=== PATIENT | female | born 1945 | race Caucasian/White ===

== ENCOUNTER 2018-08-13 11:19 | Outpatient (CLI) | payer MEDICARE, BC ==
--- NOTE | 2018-08-13 13:22 | ULT ---
THYROID ULTRASOUND: Date: 08/13/18 CLINICAL HISTORY: Thyroid goiter. FINDINGS: Left thyroid lobe is absent. The right thyroid lobe measures 3.4 cm in length. There is mild thickeni ng of the isthmus at 4.0 mm. There is generalized heterogeneity of the thyroid parenchyma. A discrete nodule is not identified. IMPRESSION: 1. Evidence of thyroid goiter without a discrete nodule. 2. There is absence of the left thyroid lobe. POS: [facility]
== END 2018-08-13 11:20 | disposition home or self-care (01) ==
LOC: SCSULT 11:19
PROVIDERS: ATTEND Otolaryngology Plastic Surgery within the Head & Neck
DX: E04.1 Nontoxic single thyroid nodule (principal); R53.83 Other fatigue; E04.9 Nontoxic goiter, unspecified
CPT/HCPCS: 36415; 76536; 84443

== ENCOUNTER 2018-08-27 11:00 | Outpatient (CLI) | payer MEDICARE, BC ==
[2018-08-27 15:49] LABS: #Basophils 0.1 thou/uL (0.0-0.2); #Eosinphils 0.1 thou/uL (0.0-0.7); #Lymphocytes 1.5 thou/uL (1.20-3.40); #Monocytes 0.7 thou/uL (0.11-0.59); #Neutrophils 6.7 thou/uL (1.40-6.50); %Basophils 0.7 % (0.0-1.0); %Eosinophils 1.6 % (0.0-10.0); %Lymphocytes 16.4 % (21.0-51.0); %Monocytes 7.9 % (0.0-10.0); %Neutrophils 73.4 % (42.0-75.0); Hemoglobin 12.1 g/dL (12.0-16.0); Mean Corpuscular HGB CONC 32.3 g/dL (32.0-36.0); Mean Corpuscular Hemoglobin 28.1 pg (27.0-31.0); Mean Platelet Volume 7.4 fL (7.4-10.4); Platelet Count 357 thou/uL (130-400); RBC Distribution Width 12.7 % (11.5-14.5); Red Blood Cell (RBC) Count 4.32 mill/uL (4.20-5.40); White Blood Cell (WBC) Count 9.1 thou/uL (4.8-10.8)
[2018-08-27 15:55] LABS: PTT 31.9 SEC (22.9-36.1); Prothrombin Time 13.2 SEC (12.0-14.7)
[2018-08-27 16:04] LABS: Bilirubin Negative (Negative); Blood, Urine Negative (Negative); Clarity CLEAR (Clear); Glucose, Urine (Dipstick) Negative (Negative); Leukocyte Negative (Negative); Nitrite Negative (Negative); Protein, Urine (Dipstick) Negative (Neg-Trace); Urobilinogen 0.2 mg/dL (0.2-1.0)
[2018-08-27 16:07] LABS: Bacteria/HPF None Seen HPF (None Seen); Hyaline Casts/LPF 0-3 HYALINE CAST LPF (0-3 Hyaline); Pathc Cast-AUWi Flag 0.29 (0-2.49); RBC/HPF 0-3 HPF (0-3); Squamous Epithelial 0-3 HPF (0-3); WBC/HPF None Seen HPF (0-3)
[2018-08-27 16:14] LABS: Anion Gap 16 mmol/L (10-20); BUN (Urea Nitrogen) 12 mg/dL (9.8-20.1); Calc. Creatinine Clearance 0 mL/min (70-130); Calcium 9.6 mg/dL (7.8-10.44); Carbon Dioxide 29 mmol/L (23-31); Chloride 93 mmol/L (98-107); Estimated GFR-MDRD 54; Glucose 104 mg/dL (83-110); Potassium 3.1 mmol/L (3.5-5.1); Sodium 135 mmol/L (136-145)
--- NOTE | 2018-08-27 17:07 | RAD ---
CHEST 2 VIEWS: HISTORY: Preadmission radiograph. COMPARISON: None. FINDINGS: Normal cardiac silhouette. Pulmonary vessels and hilum are normal. Costophrenic angles are clear. No consolidation or mass. No pneumothorax or osseous abnormalities. Incidental hiatal hernia is not ed. IMPRESSION: No acute cardiopulmonary process. POS: [facility]
== END 2018-08-27 11:01 | disposition home or self-care (01) ==
LOC: LABBT 11:00
PROVIDERS: ATTEND Orthopaedic Surgery
DX: Z01.818 Encounter for other preprocedural examination (principal); M17.12 Unilateral primary osteoarthritis, left knee
CPT/HCPCS: 71046; 80048; 81001; 85025; 85610; 85730; 87081; 93005; 93010

== ENCOUNTER 2018-09-06 09:24 | Day surgery (SDC) | payer MEDICARE, BC ==
--- NOTE | 2018-09-04 15:57 | OP ---
DATE OF PROCEDURE: 09/04/2018 PROCEDURE PERFORMED: Left total knee arthroplasty using Bennett triathlon, 4 femur, 4 tibia, 9 mm CS X3 polyethylene, and a 29 patella. SHOE WORKER: Desean Robertson PA-C. BLOOD LOSS: Minimal. SPECIMEN: None. DRAINS: None. COMPLICATIONS: None. TOURNIQUET TIME: 50 minutes. PROCEDURE IN DETAIL: After informed consent was obtained in the preoperative holding area, the patient was taken to the operative suite where general anesthesia was induced. Once adequate level of general anesthesia was obtained, the patient was positioned and a well-padded tourniquet was placed around the left proximal thigh. The left lower extremity was then prepped and draped in the usual sterile fashion. Prior to exsanguination, a time-out was called and all members of the surgical team agreed upon site, surgeon, and patient. The extremity was then exsanguinated and the tourniquet was raised. A midline longitudinal incision was then made directly over the patella extending 2 fingerbreadths above the superior pole of the patella and 2 fingerbreadths inferior to the inferior patellar pole of the patella. Deeper subcutaneous layers were dissected sharply and local bleeding was controlled with Bovie electrocautery. A quad tendon longitudinal split was then made sharply and a median parapatellar arthrotomy was carried out both sharp and with Bovie electrocautery, carried down to 1 fingerbreadth medial to the tibial tubercle. The knee was then placed into flexion and the patella was everted nicely, and a copious fat pad ectomy was performed allowing for greater exposure of the tibia. The computer-assisted distal femoral fiducial was then placed and pinned firmly, and the distal femoral cutting guide was pinned firmly into place. The oscillating saw was then used to remove the appropriate amount of bone. The 4-in-1 cutting block was then placed on the distal femur and the oscillating saw was used to remove the appropriate amount of bone off the anterior, posterior, and chamfer cuts. After completion of bone cuts, the anterior cruciate ligament was resected sharply and the posterior cruciate ligament retractor was placed and the tibia was subluxed for better exposure. Partial meniscectomies were carried out, and the tibial computer-assisted fiducial was pinned, and the cutting guide was placed. Oscillating saw was then used to remove the bone, with Hohmann retractors used to take care and protect the collateral ligaments. After the tibial resection was performed, a laminar learning consultant was placed in between the freshened bone cuts. The knee placed at 90 degrees and further bilateral meniscectomies were carried out, and the curved osteotome and curettage were used to remove any excess bone spurs in the posterior compartment. The trial femoral component, tibial baseplate were placed with the appropriate polyethylene trial insert with an appropriate polyethylene spacer and patellar button. The knee was taken through full range of motion with flexion and extension from 0 to 90 degrees and patellar broach squarely in the trochlea without any squinting or subluxation noted. The knee was also stable to varus and valgus stressing at 0, 15, 45, and 90 degrees of flexion. The drawer was negative. All trial components were then removed and the keel punch was used to provide the appropriate defect in the tibia with a mallet. The freshened bone cuts were copiously irrigated with pulsatile lavage of about 1.5 L to remove all excess debris. The freshened bone cuts were then dried with suction and lap sponge. The knee was placed in flexion and retractors were placed to provide access to all bone cuts. Tobramycin-impregnated methyl methacrylate cement was then placed on the freshened bone cuts and implants which were malleted firmly into place. Curettage and Mosby elevators were used to remove any excess bone cement. The knee was placed into full extension and the patellar button was placed under compression, and the cement was allowed to cure. Once completed, the components were again taken through full range of motion and copious irrigation of the knee was carried out with another liter of normal saline. All components were inspected fully with full range of motion and varus and valgus stressing. There was no laxity noted and full extension was observed clinically. Primary closure was accomplished with #2 interrupted Vicryl stitch of the arthrotomy defect. This was oversewn with a #2 running Quill barbed stitch. The gravitational platelet system was then injected into the arthrotomy prior to closure. The subcutaneous layer was then closed with a running 0 barbed Monocryl stitch and skin closure accomplished with a running subcuticular 3-0 Monocryl barbed Quill stitch and augmented with cement on the skin. Tourniquet was lowered. Good spontaneous return of distal pulses was noted clinically and a sterile dressing was applied to the incision. The procedure was terminated without any complications. The patient was awakened in the operative suite and the patient was taken to the recovery room in stable condition. Job ID: [id number]
--- NOTE | 2018-09-04 16:25 | RAD ---
LEFT KNEE TWO VIEWS: 09/04/2018 HISTORY: Postop total knee replacement. FINDINGS: Post surgical changes related to left total knee prosthesis are present. No hardware complication is seen. There is no fracture or dislocation identified. Subcutaneous emphysema and edema are seen ab out the knee, related to recent post surgical changes. IMPRESSION: Recent postsurgical changes related to placement of left total knee prosthesis. POS: [facility]
[2018-09-04] MEDS: Ketorolac Tromethamine 30 MG/ML VIAL IVP SCH ×3 (16:39→23:28)
[2018-09-04] MEDS: Sodium Chloride 0.9% 1,000 ML IV SCH ×2 (17:14→20:32)
[2018-09-04] MEDS: CEFAZOLIN 2 GM/50 ML-DEXTROSE 2 GM in Premix Bag 1 BAG IVPB SCH (17:15)
--- NOTE | 2018-09-04 19:11 | PDOC.PN ---
- Subjective Encounter Start Date: 09/04/18 Encounter Start Time: 19:10 Subjective: Pt seen and examined. chart reviewed.S/P Left TKR -: IMteam consulted for medical management.PCP -: denies any pain,no nausea/vomiting.no fever/chills. no CP/SOB - Objective MAR Reviewed: Yes Vital Signs & Weight: Vital Signs (12 hours) Temp Pulse Resp BP BP Pulse Ox 09/04/18 16:45 94 L 09/04/18 16:05 107/69 09/04/18 16:00 85 130/82 09/04/18 15:30 97.6 F 91 18 164/81 H 96 Weight Weight 185 lb I&O: 09/03/18 09/04/18 09/05/18 06:59 06:59 06:59 Intake Total 1360 Output Total 350 Balance 1010 Additional Labs: Laboratory Tests 08/13/18 08/27/18 08/27/18 11:51 15:05 15:05 WBC 9.1 Hgb 12.1 Plt Count 357 Sodium 135 L Potassium 3.1 L Chloride 93 L Carbon Dioxide 29 Anion Gap 16 BUN 12 TSH 3rd Generation 1.7040 Phys Exam - Physical Examination Constitutional: NAD HEENT: PERRLA, moist MMs, sclera anicteric, oral pharynx no lesions Neck: no nodes, no JVD, supple, full ROM Respiratory: no wheezing, no rales, no rhonchi, clear to auscultation bilateral Cardiovascular: RRR, no significant murmur Gastrointestinal: soft, non-tender, no distention, positive bowel sounds Musculoskeletal: no edema, pulses present Neurological: non-focal, normal sensation, moves all 4 limbs Psychiatric: normal affect, A&O x 3 Skin: no rash Dx/Plan (1) HTN (hypertension) Code(s): I10 - ESSENTIAL (PRIMARY) HYPERTENSION Status: Chronic (2) Hypothyroid Code(s): E03.9 - HYPOTHYROIDISM, UNSPECIFIED Status: Chronic (3) Status post total knee replacement, left Code(s): Z96.652 - PRESENCE OF LEFT ARTIFICIAL KNEE JOINT Status: Acute - Plan plan discussed w/ family, PT/OT, incentive spirometry, out of bed/ambulate, DVT proph w/SCDs HD stable. cont home meds as below. reviewed. -: ASA BID for DVT prophylaxis -: add prn antihypertensives.Bp controlled for now -: AM labs. monitor lytes,H/H,renal Fx etc -: IM team will follow * . Review of Systems - Review of Systems Constitutional: negative: fever, chills, sweats, weakness, malaise, other ENT: negative: Ear Pain, Ear Discharge, Nose Pain, Nose Discharge, Nose Congestion, Mouth Pain, Mouth Swelling, Throat Pain, Throat Swelling, Other Respiratory: negative: Cough, Dry, Shortness of Breath, Hemoptysis, SOB with Excertion, Pleuritic Pain, Sputum, Wheezing Cardiovascular: negative: chest pain, palpitations, orthopnea, paroxysmal nocturnal dyspnea, edema, light headedness, other Gastrointestinal: negative: Nausea, Vomiting, Abdominal Pain, Diarrhea, Constipation, Melena, Hematochezia, Other Genitourinary: negative: Dysuria, Frequency, Incontinence, Hematuria, Retention , Other Musculoskeletal: negative: Neck Pain, Shoulder Pain, Arm Pain, Back Pain, Hand Pain, Leg Pain, Foot Pain, Other Skin: negative: Rash, Lesions, Hever, Bruising, Other Neurological: negative: Weakness, Numbness, Incoordination, Change in Speech, Confusion, Seizures, Other - Medications/Allergies Allergies/Adverse Reactions: Allergies Allergy/AdvReac Type Severity Reaction Status Date / Time codeine Allergy Mild Headache Verified 09/04/18 16:42 Sulfa (Sulfonamide Allergy Rash Verified 09/04/18 16:42 Antibiotics) Medications: Current Medications Acetaminophen (Tylenol) 1,000 mg PO Q6H PRN PRN Reason: Mild Pain (1-3) Hydrocodone Bitart/Acetaminophen ([place] 10/325) 1 tab PO Q4H PRN PRN Reason: Pain (1-3) Hydrocodone Bitart/Acetaminophen ([place] 10/325) 2 tab PO Q4H PRN PRN Reason: PAIN (4-6) Aspirin (Ecotrin) 81 mg PO BID [facility] Benzonatate (Tessalon) 100 mg PO Q6H PRN PRN Reason: Cough Clonidine (Catapres) 0.1 mg PO Q4H PRN PRN Reason: SBP > 160____ Diphenhydramine HCl (Benadryl) 25 mg PO Q6H PRN PRN Reason: Itching Fentanyl (Sublimaze) 50 mcg IV Q1H PRN PRN Reason: BREAKTHRU PAIN Ferrous Gluconate (Fergon) 324 mg PO BID [facility] Fluoxetine HCl (Prozac) 10 mg PO DAILY [facility] Guaifenesin (Robitussin Sf) 200 mg PO Q4H PRN PRN Reason: Cough Hydralazine HCl (Apresoline) 10 mg SLOW IVP Q4H PRN PRN Reason: SBP > 170 and HR < 70 Hydrochlorothiazide (Hydrochlorothiazide) 25 mg PO DAILY [facility] Vancomycin HCl 1.5 gm/ Sodium (Chloride) 300 mls @ 200 mls/hr IVPB ONE [facility] Stop: 09/04/18 23:59 Sodium Chloride (Normal Saline 0.9%) 1,000 mls @ 100 mls/hr IV .Q10H [facility] Last Admin: 09/04/18 17:14 Dose: 1,000 mls Ropivacaine 250 ml/ Device 250 mls @ 10 mls/hr NERVE BLCK INF [facility] Cefazolin Sodium/Dextrose 2 gm (/ Device) 50 mls @ 100 mls/hr IVPB 0200,1000, 1800 [facility] Stop: 09/05/18 02:29 Last Admin: 09/04/18 17:15 Dose: 50 mls Iron/Minerals/Multivitamins (Theragran M) 1 tab PO DAILY [facility] Ketorolac Tromethamine (Toradol) 15 mg IVP Q6HR [facility] Stop: 09/06/18 06:01 Last Admin: 09/04/18 17:15 Dose: 15 mg Levothyroxine Sodium (Synthroid) 112 mcg PO 0600 [facility] Lisinopril (Zestril) 40 mg PO DAILY [facility] Nitroglycerin (Nitrostat) 0.4 mg SL Q5MIN PRN PRN Reason: Chest Pain Ondansetron HCl (Zofran) 4 mg IVP Q6H PRN PRN Reason: Nausea/Vomiting Pantoprazole Sodium (Protonix) 40 mg PO HS [facility] Promethazine HCl (Phenergan) 12.5 mg IM Q4H PRN PRN Reason: Nausea Senna/Docusate Sodium (Senokot S) 2 tab PO BID [facility] Sodium Chloride (Flush - Normal Saline) 10 ml IVF PRN PRN PRN Reason: Saline Flush Sodium Chloride (Flush - Normal Saline) 10 ml IVF PRN PRN PRN Reason: Saline Flush Tramadol HCl (Ultram) 50 mg PO Q6H PRN PRN Reason: Mild Pain (1-3) Tramadol HCl (Ultram) 100 mg PO Q6H PRN PRN Reason: Moderate Pain 4-6 Trospium (Trospium) 20 mg PO DAILY [facility] Zolpidem Tartrate (Ambien) 5 mg PO HSPRN PRN PRN Reason: Insomnia
[2018-09-04] MEDS: Ferrous Gluconate 324 MG TAB PO SCH (20:30)
[2018-09-04] MEDS: Senokot S 8.6-50 MG TAB PO SCH (20:30)
[2018-09-04] MEDS: Aspirin 81 mg Enteric Coated Tablet PO SCH (20:30)
[2018-09-05] MEDS: CEFAZOLIN 2 GM/50 ML-DEXTROSE 2 GM in Premix Bag 1 BAG IVPB SCH (01:14)
[2018-09-05 06:26] LABS: Hemoglobin 10.2 g/dL (12.0-16.0); Mean Corpuscular HGB CONC 31.1 g/dL (32.0-36.0); Mean Corpuscular Hemoglobin 26.8 pg (27.0-31.0); Mean Corpuscular Volume 86.4 fL (78.0-98.0); Mean Platelet Volume 7.4 fL (7.4-10.4); Platelet Count 316 thou/uL (130-400); RBC Distribution Width 12.9 % (11.5-14.5); White Blood Cell (WBC) Count 10.9 thou/uL (4.8-10.8)
[2018-09-05 06:39] LABS: Anion Gap 14 mmol/L (10-20); BUN (Urea Nitrogen) 12 mg/dL (9.8-20.1); Calc. Creatinine Clearance 82 mL/min (70-130); Carbon Dioxide 23 mmol/L (23-31); Chloride 97 mmol/L (98-107); Estimated GFR-MDRD 68; Glucose 115 mg/dL (83-110); Potassium 3.1 mmol/L (3.5-5.1); Sodium 131 mmol/L (136-145)
[2018-09-05] MEDS: Ketorolac Tromethamine 30 MG/ML VIAL IVP SCH ×4 (06:42→23:13)
[2018-09-05] MEDS: Levothyroxine Sodium 112 MCG TAB PO SCH (06:43)
[2018-09-05] MEDS: Sodium Chloride 0.9% 1,000 ML IV SCH ×2 (07:54→16:54)
[2018-09-05] MEDS: Aspirin 81 mg Enteric Coated Tablet PO SCH ×2 (08:55→20:41)
[2018-09-05] MEDS: Senokot S 8.6-50 MG TAB PO SCH ×2 (08:55→20:42)
[2018-09-05] MEDS: Multivitamin W/ Minerals 1 TAB PO SCH (08:55)
[2018-09-05] MEDS: Ferrous Gluconate 324 MG TAB PO SCH ×2 (08:55→20:41)
[2018-09-05] MEDS: Hydrochlorothiazide 25 MG TAB PO SCH (08:55)
[2018-09-05] MEDS: Lisinopril 20 MG TAB PO SCH (08:55)
[2018-09-05] MEDS: FLUoxetine HCl 10 MG CAP PO SCH (09:56)
[2018-09-05] MEDS: TROSPIUM 20 MG TABLET PO SCH (09:56)
[2018-09-05] MEDS: Potassium Chloride 20 MEQ in Premix Bag 1 BAG IVPB SCH ×2 (10:36→16:10)
[2018-09-05 14:58] VITALS: BMI 37.3
--- NOTE | 2018-09-05 15:16 | PDOC.PN ---
- Subjective Encounter Start Date: 09/05/18 Encounter Start Time: 15:14 Subjective: mild nausea & pain at IV insertion site.IV blew twice -: O/W denies any othet complaints.pain controlled - Objective MAR Reviewed: Yes Vital Signs & Weight: Vital Signs (12 hours) Temp Pulse Resp BP BP BP Pulse Ox 09/05/18 13:05 98.1 F 80 18 136/72 97 09/05/18 08:55 148/83 H 09/05/18 07:52 97.7 F 83 20 148/83 H 98 09/05/18 04:32 97.9 F 86 16 135/80 96 Weight Admit Weight 185 lb Weight 185 lb I&O: 09/04/18 09/05/18 09/06/18 06:59 06:59 06:59 Intake Total 1360 100 Output Total 350 400 Balance 1010 -300 Result Diagrams: 09/05/18 05:37 09/05/18 05:37 Additional Labs: Laboratory Tests 08/27/18 09/05/18 15:05 05:37 Hgb 12.1 10.2 L Phys Exam - Physical Examination Constitutional: NAD HEENT: PERRLA, moist MMs, sclera anicteric, oral pharynx no lesions Neck: no nodes, no JVD, supple, full ROM Respiratory: no wheezing, no rales, no rhonchi, clear to auscultation bilateral Cardiovascular: RRR, no significant murmur, no rub Gastrointestinal: soft, non-tender, no distention, positive bowel sounds Musculoskeletal: no edema, pulses present Neurological: non-focal, normal sensation, moves all 4 limbs Psychiatric: normal affect, A&O x 3 Skin: no rash Dx/Plan (1) Hypokalemia Code(s): E87.6 - HYPOKALEMIA Status: Acute (2) HTN (hypertension) Code(s): I10 - ESSENTIAL (PRIMARY) HYPERTENSION Status: Chronic (3) Hypothyroid Code(s): E03.9 - HYPOTHYROIDISM, UNSPECIFIED Status: Chronic (4) Status post total knee replacement, left Code(s): Z96.652 - PRESENCE OF LEFT ARTIFICIAL KNEE JOINT Status: Acute - Plan PT/OT, incentive spirometry, out of bed/ambulate, DVT proph w/SCDs Hemodynamically stable -: H/H lower post-op.asymptomatic. monitor -: replace Potassium -: Pt requesting tomorrow d/t IV pain -: Im team will follow. Home meds as below.OT/PT * . Review of Systems - Review of Systems Constitutional: weakness. negative: fever, chills, sweats, malaise, other ENT: negative: Ear Pain, Ear Discharge, Nose Pain, Nose Discharge, Nose Congestion, Mouth Pain, Mouth Swelling, Throat Pain, Throat Swelling, Other Respiratory: negative: Cough, Dry, Shortness of Breath, Hemoptysis, SOB with Excertion, Pleuritic Pain, Sputum, Wheezing Cardiovascular: negative: chest pain, palpitations, orthopnea, paroxysmal nocturnal dyspnea, edema, light headedness, other Gastrointestinal: Nausea Genitourinary: negative: Dysuria, Frequency, Incontinence, Hematuria, Retention , Other Musculoskeletal: negative: Neck Pain, Shoulder Pain, Arm Pain, Back Pain, Hand Pain, Leg Pain, Foot Pain, Other Neurological: negative: Weakness, Numbness, Incoordination, Change in Speech, Confusion, Seizures, Other - Medications/Allergies Allergies/Adverse Reactions: Allergies Allergy/AdvReac Type Severity Reaction Status Date / Time codeine Allergy Mild Headache Verified 09/04/18 16:42 Sulfa (Sulfonamide Allergy Rash Verified 09/04/18 16:42 Antibiotics) Medications: Current Medications Acetaminophen (Tylenol) 1,000 mg PO Q6H PRN PRN Reason: Mild Pain (1-3) Hydrocodone Bitart/Acetaminophen ([place] 10/325) 1 tab PO Q4H PRN PRN Reason: Pain (1-3) Hydrocodone Bitart/Acetaminophen ([place] 10/325) 2 tab PO Q4H PRN PRN Reason: PAIN (4-6) Aspirin (Ecotrin) 81 mg PO BID [facility] Last Admin: 09/05/18 08:55 Dose: 81 mg Benzonatate (Tessalon) 100 mg PO Q6H PRN PRN Reason: Cough Clonidine (Catapres) 0.1 mg PO Q4H PRN PRN Reason: SBP > 160____ Diphenhydramine HCl (Benadryl) 25 mg PO Q6H PRN PRN Reason: Itching Fentanyl (Sublimaze) 50 mcg IV Q1H PRN PRN Reason: BREAKTHRU PAIN Ferrous Gluconate (Fergon) 324 mg PO BID [facility] Last Admin: 09/05/18 08:55 Dose: 324 mg Fluoxetine HCl (Prozac) 10 mg PO DAILY [facility] Last Admin: 09/05/18 09:56 Dose: 10 mg Guaifenesin (Robitussin Sf) 200 mg PO Q4H PRN PRN Reason: Cough Hydralazine HCl (Apresoline) 10 mg SLOW IVP Q4H PRN PRN Reason: SBP > 170 and HR < 70 Hydrochlorothiazide (Hydrochlorothiazide) 25 mg PO DAILY [facility] Last Admin: 09/05/18 08:55 Dose: 25 mg Sodium Chloride (Normal Saline 0.9%) 1,000 mls @ 100 mls/hr IV .Q10H [facility] Last Admin: 09/05/18 07:54 Dose: Not Given Ropivacaine 250 ml/ Device 250 mls @ 10 mls/hr NERVE BLCK INF [facility] Iron/Minerals/Multivitamins (Theragran M) 1 tab PO DAILY [facility] Last Admin: 09/05/18 08:55 Dose: 1 tab Ketorolac Tromethamine (Toradol) 15 mg IVP Q6HR [facility] Stop: 09/06/18 06:01 Last Admin: 09/05/18 13:15 Dose: 15 mg Levothyroxine Sodium (Synthroid) 112 mcg PO 0600 [facility] Last Admin: 09/05/18 06:43 Dose: 112 mcg Lisinopril (Zestril) 40 mg PO DAILY [facility] Last Admin: 09/05/18 08:55 Dose: 40 mg Nitroglycerin (Nitrostat) 0.4 mg SL Q5MIN PRN PRN Reason: Chest Pain Ondansetron HCl (Zofran) 4 mg IVP Q6H PRN PRN Reason: Nausea/Vomiting Pantoprazole Sodium (Protonix) 40 mg PO HS [facility] Promethazine HCl (Phenergan) 12.5 mg IM Q4H PRN PRN Reason: Nausea Senna/Docusate Sodium (Senokot S) 2 tab PO BID [facility] Last Admin: 09/05/18 08:55 Dose: 2 tab Sodium Chloride (Flush - Normal Saline) 10 ml IVF PRN PRN PRN Reason: Saline Flush Sodium Chloride (Flush - Normal Saline) 10 ml IVF PRN PRN PRN Reason: Saline Flush Tramadol HCl (Ultram) 50 mg PO Q6H PRN PRN Reason: Mild Pain (1-3) Tramadol HCl (Ultram) 100 mg PO Q6H PRN PRN Reason: Moderate Pain 4-6 Trospium (Trospium) 20 mg PO DAILY [facility] Last Admin: 09/05/18 09:56 Dose: 20 mg Zolpidem Tartrate (Ambien) 5 mg PO HSPRN PRN PRN Reason: Insomnia
[2018-09-05] MEDS: Ropivacaine HCl/PF 250 ML in Premix Bag 1 BAG NERVE BLCK SCH (16:10)
[2018-09-06] MEDS: Levothyroxine Sodium 112 MCG TAB PO SCH (06:34)
[2018-09-06] MEDS: Ketorolac Tromethamine 30 MG/ML VIAL IVP SCH (06:34)
[2018-09-06] MEDS: Sodium Chloride 0.9% 1,000 ML IV SCH ×2 (08:35→14:43)
[~2018-09-06 09:24] MED LIST: Acetaminophen 325 MG TAB PO PRN; Acetaminophen 500 MG TAB PO PRN; Benzonatate 100 MG CAP PO PRN; CEFAZOLIN 2 GM/50 ML BAG ONE; CEFAZOLIN 2 GM/50 ML-DEXTROSE 2 GM in Premix Bag 1 BAG IVPB SCH; CEFAZOLIN/Water 2 GM/20 ML SYRINGE SLOW IVP SCH; Dexamethasone 20 MG/5 ML VIAL ONE; Diabetic Tussin 200 MG/10 ML UDCUP PO PRN; Fentanyl 100 MCG/2 ML VIAL IV PRN; Fentanyl 100 MCG/2 ML VIAL ONE; HYDROcodone/Acetaminophen 10/325 mg Tablet PO PRN; Ketorolac Tromethamine 30 MG/ML VIAL IVP SCH; Lidocaine 1% (PF) 30 ML VIAL ONE; Lisinopril 20 MG TAB PO SCH; Midazolam HCl 2 mg/2 ml Vial ONE; Nitroglycerin 0.4 MG TAB (25 Tab Bottle) SL PRN; Ondansetron HCl/PF 4 MG/2 ML Vial IVP PRN; Ondansetron PF 4 MG/2 ML Vial IVP PRN; Ondansetron PF 4 MG/2 ML Vial ONE; PHENYLEPHRINE-NS 100 MCG/ML 10 ML SYRINGE ONE; PROPOFOL 200 MG/20 ML VIAL ONE; Potassium Chloride 40 MEQ in Premix Bag 1 BAG IVPB SCH; Promethazine HCl 25 MG/ML VIAL IM PRN; Promethazine HCl 25 MG/ML VIAL SLOW IVP PRN; Ropivacaine 0.2% HCl/PF (40 MG/20 ML VIAL) ONE; Ropivacaine 0.5% HCl/PF (150 MG/30 ML VIAL) ONE; Sodium Chloride 0.9% 100 ML ONE; Tranexamic Acid 1,000 MG/10 ML VIAL ONE; Vancomycin HCl 1.5 GM in Sodium Chloride 0.9% 250 ML 300 ML IVPB SCH; Zolpidem Tartrate 5 MG TAB PO PRN; cloNIDine 0.1 MG TAB PO PRN; diphenhydrAMINE 25 MG CAP PO PRN; ePHEDrine/0.9% NaCl/PF SYRINGE 50 mg/10 ml ONE; hydrALAZINE 20 MG/ML VIAL SLOW IVP PRN; traMADol HCl 50 MG TAB PO PRN
[2018-09-06] MEDS: Multivitamin W/ Minerals 1 TAB PO SCH (09:52)
[2018-09-06] MEDS: Ferrous Gluconate 324 MG TAB PO SCH ×2 (09:52→22:00)
[2018-09-06] MEDS: Aspirin 81 mg Enteric Coated Tablet PO SCH ×2 (09:52→22:00)
[2018-09-06] MEDS: Senokot S 8.6-50 MG TAB PO SCH ×2 (09:54→22:01)
[2018-09-06] MEDS ORDERED: Lisinopril 20 MG TAB PO SCH (10:30)
[2018-09-06] MEDS: FLUoxetine HCl 10 MG CAP PO SCH (11:37)
[2018-09-06] MEDS: TROSPIUM 20 MG TABLET PO SCH (11:38)
--- NOTE | 2018-09-06 14:05 | PDOC.PN ---
- Subjective Encounter Start Date: 09/06/18 Encounter Start Time: 14:04 Subjective: had episode of dizziness and SOB earlier this Morning walking to [place] -: better now - Objective MAR Reviewed: Yes Vital Signs & Weight: Vital Signs (12 hours) Temp Pulse Resp BP BP BP Pulse Ox 09/06/18 11:56 97.2 F L 78 16 139/82 95 09/06/18 11:36 139/82 09/06/18 09:20 09/06/18 07:28 98 F 86 20 139/82 94 L 09/06/18 04:34 98.2 F 20 118/57 L 09/06/18 03:30 96 Pulse Ox 09/06/18 11:56 09/06/18 11:36 09/06/18 09:20 96 09/06/18 07:28 09/06/18 04:34 09/06/18 03:30 Weight Admit Weight 185 lb Weight 185 lb I&O: 09/05/18 09/06/18 09/07/18 06:59 06:59 06:59 Intake Total 1360 2220 500 Output Total 350 400 Balance 1010 1820 500 Result Diagrams: 09/05/18 05:37 09/05/18 05:37 Phys Exam - Physical Examination Constitutional: NAD sitting up in chair HEENT: PERRLA, moist MMs, sclera anicteric, oral pharynx no lesions Neck: no nodes, no JVD, supple, full ROM Respiratory: no wheezing, no rales, no rhonchi Cardiovascular: RRR, no significant murmur Gastrointestinal: soft, non-tender, no distention, positive bowel sounds Musculoskeletal: no edema, pulses present Neurological: non-focal, normal sensation, moves all 4 limbs Psychiatric: normal affect, A&O x 3 Skin: no rash Dx/Plan (1) Hypokalemia Code(s): E87.6 - HYPOKALEMIA Status: Acute Comment: recheck in am (2) HTN (hypertension) Code(s): I10 - ESSENTIAL (PRIMARY) HYPERTENSION Status: Chronic (3) Hypothyroid Code(s): E03.9 - HYPOTHYROIDISM, UNSPECIFIED Status: Chronic (4) Status post total knee replacement, left Code(s): Z96.652 - PRESENCE OF LEFT ARTIFICIAL KNEE JOINT Status: Acute - Plan DVT proph w/SCDs BP on lower side.Hold HCTZ.Add parameters on lisinopril -: anabell vasovagal -: will check H/H tomorrow.Cont FeSO4 BID. -: ASA BID for dvt prophylaxis. -: IM team will follow. * . Review of Systems - Review of Systems Constitutional: weakness. negative: fever, chills, sweats, malaise, other Respiratory: negative: Cough, Dry, Shortness of Breath, Hemoptysis, SOB with Excertion, Pleuritic Pain, Sputum, Wheezing Cardiovascular: negative: chest pain, palpitations, orthopnea, paroxysmal nocturnal dyspnea, edema, light headedness, other Gastrointestinal: negative: Nausea, Vomiting, Abdominal Pain, Diarrhea, Constipation, Melena, Hematochezia, Other Genitourinary: negative: Dysuria, Frequency, Incontinence, Hematuria, Retention , Other Musculoskeletal: negative: Neck Pain, Shoulder Pain, Arm Pain, Back Pain, Hand Pain, Leg Pain, Foot Pain, Other - Medications/Allergies Allergies/Adverse Reactions: Allergies Allergy/AdvReac Type Severity Reaction Status Date / Time codeine Allergy Mild Headache Verified 09/04/18 16:42 Sulfa (Sulfonamide Allergy Rash Verified 09/04/18 16:42 Antibiotics) Medications: Current Medications Acetaminophen (Tylenol) 1,000 mg PO Q6H PRN PRN Reason: Mild Pain (1-3) Hydrocodone Bitart/Acetaminophen ([place] 10/325) 1 tab PO Q4H PRN PRN Reason: Pain (1-3) Hydrocodone Bitart/Acetaminophen ([place] 10/325) 2 tab PO Q4H PRN PRN Reason: PAIN (4-6) Aspirin (Ecotrin) 81 mg PO BID [facility] Last Admin: 09/06/18 09:52 Dose: 81 mg Benzonatate (Tessalon) 100 mg PO Q6H PRN PRN Reason: Cough Clonidine (Catapres) 0.1 mg PO Q4H PRN PRN Reason: SBP > 160____ Diphenhydramine HCl (Benadryl) 25 mg PO Q6H PRN PRN Reason: Itching Fentanyl (Sublimaze) 50 mcg IV Q1H PRN PRN Reason: BREAKTHRU PAIN Ferrous Gluconate (Fergon) 324 mg PO BID [facility] Last Admin: 09/06/18 09:52 Dose: 324 mg Fluoxetine HCl (Prozac) 10 mg PO DAILY [facility] Last Admin: 09/06/18 11:37 Dose: 10 mg Guaifenesin (Robitussin Sf) 200 mg PO Q4H PRN PRN Reason: Cough Hydralazine HCl (Apresoline) 10 mg SLOW IVP Q4H PRN PRN Reason: SBP > 170 and HR < 70 Sodium Chloride (Normal Saline 0.9%) 1,000 mls @ 100 mls/hr IV .Q10H [facility] Last Admin: 09/06/18 08:35 Dose: Not Given Ropivacaine 250 ml/ Device 250 mls @ 10 mls/hr NERVE BLCK INF [facility] Last Admin: 09/05/18 16:10 Dose: 250 mls Iron/Minerals/Multivitamins (Theragran M) 1 tab PO DAILY [facility] Last Admin: 09/06/18 09:52 Dose: 1 tab Levothyroxine Sodium (Synthroid) 112 mcg PO 0600 [facility] Last Admin: 09/06/18 06:34 Dose: 112 mcg Lisinopril (Zestril) 40 mg PO DAILY [facility] Nitroglycerin (Nitrostat) 0.4 mg SL Q5MIN PRN PRN Reason: Chest Pain Ondansetron HCl (Zofran) 4 mg IVP Q6H PRN PRN Reason: Nausea/Vomiting Last Admin: 09/05/18 23:11 Dose: 4 mg Pantoprazole Sodium (Protonix) 40 mg PO HS [facility] Last Admin: 09/05/18 20:42 Dose: 40 mg Promethazine HCl (Phenergan) 12.5 mg IM Q4H PRN PRN Reason: Nausea Senna/Docusate Sodium (Senokot S) 2 tab PO BID [facility] Last Admin: 09/06/18 09:54 Dose: Not Given Sodium Chloride (Flush - Normal Saline) 10 ml IVF PRN PRN PRN Reason: Saline Flush Sodium Chloride (Flush - Normal Saline) 10 ml IVF PRN PRN PRN Reason: Saline Flush Tramadol HCl (Ultram) 50 mg PO Q6H PRN PRN Reason: Mild Pain (1-3) Tramadol HCl (Ultram) 100 mg PO Q6H PRN PRN Reason: Moderate Pain 4-6 Trospium (Trospium) 20 mg PO DAILY [facility] Last Admin: 09/06/18 11:38 Dose: 20 mg Zolpidem Tartrate (Ambien) 5 mg PO HSPRN PRN PRN Reason: Insomnia
[2018-09-06] MEDS: Hydrochlorothiazide 25 MG TAB PO SCH (14:42)
[2018-09-06] MEDS: Lisinopril 20 MG TAB PO SCH (14:42)
[2018-09-06] MEDS: Ropivacaine HCl/PF 250 ML in Premix Bag 1 BAG NERVE BLCK SCH (18:57)
[2018-09-06] MEDS: traMADol HCl 50 MG TAB PO PRN (19:21)
[2018-09-07] MEDS: Sodium Chloride 0.9% 1,000 ML IV SCH (00:03)
[2018-09-07] MEDS: traMADol HCl 50 MG TAB PO PRN ×3 (04:04→12:01)
[2018-09-07] MEDS: Levothyroxine Sodium 112 MCG TAB PO SCH (05:27)
[2018-09-07 06:56] LABS: #Eosinphils 0.3 thou/uL (0.0-0.7); #Lymphocytes 1.2 thou/uL (1.20-3.40); #Monocytes 1.1 thou/uL (0.11-0.59); #Neutrophils 6.8 thou/uL (1.40-6.50); %Basophils 0.5 % (0.0-1.0); %Eosinophils 3.7 % (0.0-10.0); %Lymphocytes 12.6 % (21.0-51.0); %Monocytes 11.2 % (0.0-10.0); %Neutrophils 72.1 % (42.0-75.0); Hemoglobin 9.8 g/dL (12.0-16.0); Mean Corpuscular Hemoglobin 28.4 pg (27.0-31.0); Mean Corpuscular Volume 88.6 fL (78.0-98.0); Mean Platelet Volume 7.2 fL (7.4-10.4); Platelet Count 263 thou/uL (130-400); RBC Distribution Width 13.5 % (11.5-14.5); Red Blood Cell (RBC) Count 3.44 mill/uL (4.20-5.40); White Blood Cell (WBC) Count 9.4 thou/uL (4.8-10.8)
[2018-09-07 07:18] LABS: Anion Gap 13 mmol/L (10-20); BUN (Urea Nitrogen) 8 mg/dL (9.8-20.1); Calc. Creatinine Clearance 92 mL/min (70-130); Calcium 8.3 mg/dL (7.8-10.44); Carbon Dioxide 25 mmol/L (23-31); Chloride 97 mmol/L (98-107); Estimated GFR-MDRD 77; Glucose 91 mg/dL (83-110); Potassium 3.4 mmol/L (3.5-5.1); Sodium 132 mmol/L (136-145)
[2018-09-07] MEDS: Senokot S 8.6-50 MG TAB PO SCH (08:56)
[2018-09-07] MEDS: Aspirin 81 mg Enteric Coated Tablet PO SCH (08:57)
[2018-09-07] MEDS: Ferrous Gluconate 324 MG TAB PO SCH (08:57)
[2018-09-07] MEDS: Multivitamin W/ Minerals 1 TAB PO SCH (08:57)
[2018-09-07] MEDS ORDERED: Lisinopril 20 MG TAB PO SCH (09:00)
[2018-09-07 11:46] VITALS: BP 148/85; TEMP 98.1
--- NOTE | 2018-09-07 13:44 | PDOC.PN ---
- Subjective Encounter Start Date: 09/07/18 Encounter Start Time: 13:43 Subjective: pt seen and examined. -: feels a little dizzy but better.no ON events - Objective MAR Reviewed: Yes Vital Signs & Weight: Vital Signs (12 hours) Temp Pulse Resp BP BP Pulse Ox 09/07/18 11:46 98.1 F 85 20 148/85 H 96 09/07/18 08:56 160/86 H 09/07/18 08:00 97.9 F 98 16 160/86 H 95 09/07/18 04:27 98.3 F 84 18 162/82 H 94 L Weight Admit Weight 185 lb Weight 185 lb I&O: 09/06/18 09/07/18 09/08/18 06:59 06:59 06:59 Intake Total 2220 1220 Output Total 400 Balance 1820 1220 Result Diagrams: 09/07/18 06:18 09/07/18 06:18 Phys Exam - Physical Examination Constitutional: NAD HEENT: PERRLA, moist MMs, sclera anicteric, oral pharynx no lesions Neck: no nodes, no JVD, supple, full ROM Respiratory: no wheezing, no rales, no rhonchi, clear to auscultation bilateral Cardiovascular: RRR, no significant murmur Gastrointestinal: soft, non-tender, no distention, positive bowel sounds Musculoskeletal: no edema, pulses present Neurological: non-focal, normal sensation, moves all 4 limbs Psychiatric: normal affect, A&O x 3 Dx/Plan (1) Hypokalemia Code(s): E87.6 - HYPOKALEMIA Status: Acute Comment: recheck as an OP.Pt educated (2) HTN (hypertension) Code(s): I10 - ESSENTIAL (PRIMARY) HYPERTENSION Status: Chronic (3) Hypothyroid Code(s): E03.9 - HYPOTHYROIDISM, UNSPECIFIED Status: Chronic (4) Status post total knee replacement, left Code(s): Z96.652 - PRESENCE OF LEFT ARTIFICIAL KNEE JOINT Status: Acute - Plan OK to DC -: HD stable * . Review of Systems - Review of Systems Constitutional: weakness. negative: fever, chills, sweats, malaise, other ENT: negative: Ear Pain, Ear Discharge, Nose Pain, Nose Discharge, Nose Congestion, Mouth Pain, Mouth Swelling, Throat Pain, Throat Swelling, Other Respiratory: negative: Cough, Dry, Shortness of Breath, Hemoptysis, SOB with Excertion, Pleuritic Pain, Sputum, Wheezing Cardiovascular: negative: chest pain, palpitations, orthopnea, paroxysmal nocturnal dyspnea, edema, light headedness, other Gastrointestinal: negative: Nausea, Vomiting, Abdominal Pain, Diarrhea, Constipation, Melena, Hematochezia, Other Genitourinary: negative: Dysuria, Frequency, Incontinence, Hematuria, Retention , Other Neurological: negative: Weakness, Numbness, Incoordination, Change in Speech, Confusion, Seizures, Other - Medications/Allergies Allergies/Adverse Reactions: Allergies Allergy/AdvReac Type Severity Reaction Status Date / Time codeine Allergy Mild Headache Verified 09/04/18 16:42 Sulfa (Sulfonamide Allergy Rash Verified 09/04/18 16:42 Antibiotics)
== END 2018-09-07 13:12 | disposition home or self-care (01) ==
LOC: SDC 09:24 → SURG A 14:21 → SDC 09-07 13:12
PROVIDERS: ATTEND Orthopaedic Surgery
PROC: 0SRD0J9 Replacement of Left Knee Joint with Synthetic Substitute, Cemented, Open Approach (ICD-10-PCS; principal; 2018-09-06)
PROC: 8E0YXBZ Computer Assisted Procedure of Lower Extremity (ICD-10-PCS; 2018-09-06)
DX: M17.12 Unilateral primary osteoarthritis, left knee (principal); I10 Essential (primary) hypertension; E03.9 Hypothyroidism, unspecified; E87.6 Hypokalemia; E66.9 Obesity, unspecified; Z68.37 Body mass index [BMI] 37.0-37.9, adult; K21.9 Gastro-esophageal reflux disease without esophagitis; K58.9 Irritable bowel syndrome, unspecified; F41.9 Anxiety disorder, unspecified; F32.9 Major depressive disorder, single episode, unspecified; Z90.49 Acquired absence of other specified parts of digestive tract; Z90.710 Acquired absence of both cervix and uterus; Z90.722 Acquired absence of ovaries, bilateral; Z88.2 Allergy status to sulfonamides; Z88.5 Allergy status to narcotic agent; Z79.82 Long term (current) use of aspirin; Z79.899 Other long term (current) drug therapy; Z98.890 Other specified postprocedural states
CPT/HCPCS: 20985; 27447; 73560; 80048 ×2; 85025; 85027; 97110 ×3; 97116 ×4; 97139; 97150 ×2; 97530 ×3; 98961; C1713; C1776; 36415; J1100; J1885; J2001; J2250; J2405; J2704; J2795; J3010; J3370; J3480; J7050

== ENCOUNTER 2019-01-11 13:54 | Outpatient (CLI) | payer MEDICARE, BC ==
--- NOTE | 2019-01-11 14:31 | ULT ---
US Renal Bilateral STANDARD History: [Urinary urgency] Comparison: Ultrasound 2011 Findings: Real-time grayscale and color evaluation of the kidneys and urinary bladder was performed. Right kidney measures 10.8 x 4.6 x 4.7 cm and the left kidney measures 10.2 x 4.6 x 5 cm. No renal ma ss, hydronephrosis, or abnormal calcifications. Urinary bladder is are unremarkable. Diffuse hepatic steatosis. Prevoid urinary bladder volume is 68 mL in post void urinary bladder volume is 6.4 mL area Impression: No renal mass, hydronephrosis, or abnormal calcifications. No evidence for obstructive ur opathy. Diffuse hepatic steatosis.
== END 2019-01-11 13:55 | disposition home or self-care (01) ==
LOC: SCSULT 13:54
PROVIDERS: ATTEND Urology
DX: N39.0 Urinary tract infection, site not specified (principal); R39.15 Urgency of urination; K76.0 Fatty (change of) liver, not elsewhere classified
CPT/HCPCS: 76770

== ENCOUNTER 2020-04-30 13:47 | Outpatient (CLI) | payer MEDICARE, BC ==
--- NOTE | 2020-05-05 13:51 | CT ---
Exam: Chest CT with contrast HISTORY: Shortness of breath, hypertension. Lung mass. COMPARISON: None Correlation: Chest radiograph 08/27/2018 FINDINGS: Mediastinum: Nonenlarged mediastinal lymph nodes. Subcarinal lymph node measures 1.3 x 0.9 cm. Heart: No evidence of cardiomegaly, coronary calcifications are pericardial fluid Aorta: No evidence of aneurysm, dissection or periaortic fat stranding Lower neck and axilla: Left thyroid lobe appears to be surgically absent. Nonspecific bilateral axill wood lymphadenopathy Subdiaphragmatic structures: Hepatic steatosis. Moderate hiatal hernia Osseous structures: No lytic or blastic lesions within the osseous structures. Trachea and central bronchi: Patent Pleural spaces: No pleural effusion Pneumothorax: None LUNGS: Minimal dependent atelectatic changes Nodules: No suspicious masses or nodules in the right or left lung. IMPRESSION: 1. No evidence of a suspicious masses or nodules in the left or right lung. 2. Moderate hiatal hernia projecting posterior to the left atrium and left ventricle. Results study discussed with Dr. Thomas 05/05/2020 at 1:48 PM
== END 2020-04-30 13:48 | disposition home or self-care (01) ==
LOC: SCSCT 13:47
PROVIDERS: ATTEND Internal Medicine Cardiovascular Disease
DX: R91.8 Other nonspecific abnormal finding of lung field (principal); K44.9 Diaphragmatic hernia without obstruction or gangrene
CPT/HCPCS: 71260; 82565

== ENCOUNTER 2020-10-05 13:51 | Outpatient (CLI) | payer MEDICARE, BC ==
--- NOTE | 2020-10-05 14:14 | RAD ---
2 view chest: [10/05/2020] Comparison:08/27/2018 HISTORY: Shortness of breath FINDINGS: There is enlargement of the cardiac silhouette. There is an air-fluid level in the left car diophrenic angle consistent with a stable small/moderate sized hiatal hernia. No pneumothorax or pleural fluid. No focal consolidation or alveolar edema. IMPRESSION: Stable appearance of the chest as described above.
== END 2020-10-05 13:52 | disposition home or self-care (01) ==
LOC: BICRAD 13:51
PROVIDERS: ATTEND Internal Medicine Critical Care Medicine
DX: R06.00 Dyspnea, unspecified (principal)
CPT/HCPCS: 71046

== ENCOUNTER 2020-10-15 14:35 | Outpatient (CLI) | payer MEDICARE, BC | END 2020-10-15 14:36 | disposition home or self-care (01) | LOC: BICULT 14:35 | PROVIDERS: ATTEND Internal Medicine Cardiovascular Disease | DX: I10 Essential (primary) hypertension (principal) | CPT/HCPCS: 76770; 93975 ==

== ENCOUNTER 2020-10-16 17:30 | Outpatient (CLI) | payer MEDICARE, BC | END 2020-10-16 17:31 | disposition home or self-care (01) | LOC: SLEEPLAB 17:30 | PROVIDERS: ATTEND Internal Medicine Critical Care Medicine | DX: G47.33 Obstructive sleep apnea (adult) (pediatric) (principal); R53.83 Other fatigue; R06.83 Snoring; I10 Essential (primary) hypertension; G47.00 Insomnia, unspecified; R09.02 Hypoxemia | CPT/HCPCS: 95806 ==

== ENCOUNTER 2020-12-25 19:30 | Outpatient (CLI) | payer MEDICARE, BC | END 2020-12-25 19:31 | disposition home or self-care (01) | LOC: SLEEPLAB 19:30 | PROVIDERS: ATTEND Internal Medicine Critical Care Medicine | DX: G47.33 Obstructive sleep apnea (adult) (pediatric) (principal); R06.83 Snoring; G47.10 Hypersomnia, unspecified; R09.02 Hypoxemia; E66.9 Obesity, unspecified; Z68.36 Body mass index [BMI] 36.0-36.9, adult | CPT/HCPCS: 95811 ==

== ENCOUNTER 2021-07-13 13:00 | Outpatient (CLI) | payer MEDICARE, BC ==
[2021-07-13 16:00] LABS: #Eosinphils 0.1 10x3/uL (0.0-0.5); #Monocytes 0.8 10x3/uL (0.0-1.1); #Neutrophils 6.5 10x3/uL (1.5-8.4); %Basophils 0.5 % (0.0-2.0); %Eosinophils 1.4 % (0.0-6.0); %Lymphocytes 9.3 % (18.0-47.0); %Monocytes 9.3 % (0.0-10.0); %Neutrophils 78.7 % (40.0-75.0); Hemoglobin 12.7 g/dL (12.0-15.5); Mean Corpuscular HGB CONC 34.1 g/dL (32.0-36.0); Mean Corpuscular Hemoglobin 33.2 pg (27.0-33.0); Mean Corpuscular Volume 97.4 fl (81.6-98.3); Mean Platelet Volume 10.3 fl (7.4-10.4); Platelet Count 339 10x3/uL (150-450); RBC Distribution Width 13.4 % (11.5-14.5); Red Blood Cell (RBC) Count 3.82 10x6/uL (3.90-5.03); White Blood Cell (WBC) Count 8.3 10x3/uL (3.5-10.5)
[2021-07-13 16:10] LABS: ALT (SGPT) 20 U/L (8-55); AST (SGOT) 31 U/L (5-34); Albumin 4.1 g/dL (3.4-4.8); Alkaline Phosphatase 73 U/L (40-110); Anion Gap 14 mmol/L (10-20); BUN (Urea Nitrogen) 19 mg/dL (9.8-20.1); Bilirubin, Total 0.7 mg/dL (0.2-1.2); Calc. Creatinine Clearance 0 mL/min (70-130); Calcium 8.9 mg/dL (7.8-10.44); Carbon Dioxide 29 mmol/L (23-31); Chloride 95 mmol/L (98-107); Globulin 2.9 g/dL (2.4-3.5); Glucose 84 mg/dL (83-110); Potassium 3.3 mmol/L (3.5-5.1); Sodium 135 mmol/L (136-145)
[2021-07-14 11:24] LABS: SARS-CoV-2 PCR by NAA Not Detected (NotDetected)
== END 2021-07-13 13:01 | disposition home or self-care (01) ==
LOC: LABBT 13:00
PROVIDERS: ATTEND Internal Medicine Cardiovascular Disease
DX: Z01.812 Encounter for preprocedural laboratory examination (principal); R07.9 Chest pain, unspecified; Z20.822 Contact with and (suspected) exposure to COVID-19
CPT/HCPCS: 80053; 85025; U0003; U0005

== ENCOUNTER 2021-07-16 07:12 | Day surgery (SDC) | payer MEDICARE, BC ==
[2021-07-15 12:03] VITALS: BMI 36.3
[2021-07-16] MEDS ORDERED: Iopamidol 370 76% 100 ML VIAL ONE (09:02)
[2021-07-16] MEDS ORDERED: Lidocaine 1% (PF) 30 ML VIAL ONE (09:55)
[2021-07-16] MEDS ORDERED: Fentanyl 100 MCG/2 ML VIAL ONE ×2 (09:55→10:48)
[2021-07-16] MEDS ORDERED: Midazolam HCl 2 mg/2 ml Vial ONE (09:55)
== END 2021-07-16 14:14 | disposition home or self-care (01) ==
LOC: CCL 07:12
PROVIDERS: ATTEND Internal Medicine Cardiovascular Disease
PROC: 4A023N7 Measurement of Cardiac Sampling and Pressure, Left Heart, Percutaneous Approach (ICD-10-PCS; principal; 2021-07-16)
PROC: B2111ZZ Fluoroscopy of Multiple Coronary Arteries using Low Osmolar Contrast (ICD-10-PCS; 2021-07-16)
DX: R07.89 Other chest pain (principal); R06.02 Shortness of breath; I10 Essential (primary) hypertension; K44.9 Diaphragmatic hernia without obstruction or gangrene; E66.9 Obesity, unspecified; Z68.36 Body mass index [BMI] 36.0-36.9, adult; Z79.899 Other long term (current) drug therapy; Z88.1 Allergy status to other antibiotic agents; Z88.2 Allergy status to sulfonamides; Z88.5 Allergy status to narcotic agent; Z88.8 Allergy status to other drugs, medicaments and biological substances
CPT/HCPCS: 93458; 99152; J2001; J2250; J3010; Q9967

== ENCOUNTER 2021-08-05 21:31 | Inpatient (IN) | payer MEDICARE, BC ==
[~2021-08-05 21:31] MED LIST changes: -Acetaminophen 500 MG TAB PO PRN; -Benzonatate 100 MG CAP PO PRN; -CEFAZOLIN 2 GM/50 ML BAG ONE; -CEFAZOLIN 2 GM/50 ML-DEXTROSE 2 GM in Premix Bag 1 BAG IVPB SCH; -CEFAZOLIN/Water 2 GM/20 ML SYRINGE SLOW IVP SCH; -Dexamethasone 20 MG/5 ML VIAL ONE; -Diabetic Tussin 200 MG/10 ML UDCUP PO PRN; -Fentanyl 100 MCG/2 ML VIAL IV PRN; -Fentanyl 100 MCG/2 ML VIAL ONE; -HYDROcodone/Acetaminophen 10/325 mg Tablet PO PRN; -Ketorolac Tromethamine 30 MG/ML VIAL IVP SCH; -Lidocaine 1% (PF) 30 ML VIAL ONE; -Lisinopril 20 MG TAB PO SCH; -Midazolam HCl 2 mg/2 ml Vial ONE; -Nitroglycerin 0.4 MG TAB (25 Tab Bottle) SL PRN; -Ondansetron HCl/PF 4 MG/2 ML Vial IVP PRN; +Ondansetron ODT 4 MG TAB SL PRN; -Ondansetron PF 4 MG/2 ML Vial ONE; -PHENYLEPHRINE-NS 100 MCG/ML 10 ML SYRINGE ONE; -PROPOFOL 200 MG/20 ML VIAL ONE; -Potassium Chloride 40 MEQ in Premix Bag 1 BAG IVPB SCH; -Promethazine HCl 25 MG/ML VIAL IM PRN; -Promethazine HCl 25 MG/ML VIAL SLOW IVP PRN; -Ropivacaine 0.2% HCl/PF (40 MG/20 ML VIAL) ONE; -Ropivacaine 0.5% HCl/PF (150 MG/30 ML VIAL) ONE; -Sodium Chloride 0.9% 100 ML ONE; -Tranexamic Acid 1,000 MG/10 ML VIAL ONE; -Vancomycin HCl 1.5 GM in Sodium Chloride 0.9% 250 ML 300 ML IVPB SCH; -Zolpidem Tartrate 5 MG TAB PO PRN; -cloNIDine 0.1 MG TAB PO PRN; -diphenhydrAMINE 25 MG CAP PO PRN; -ePHEDrine/0.9% NaCl/PF SYRINGE 50 mg/10 ml ONE; -hydrALAZINE 20 MG/ML VIAL SLOW IVP PRN; -traMADol HCl 50 MG TAB PO PRN
[2021-08-05] MEDS ORDERED: Ondansetron PF 4 MG/2 ML Vial IVP PRN (22:02)
[2021-08-05] MEDS ORDERED: Acetaminophen 325 MG TAB PO PRN (22:02)
[2021-08-05] MEDS ORDERED: Ondansetron ODT 4 MG TAB PO PRN (22:02)
[2021-08-05] MEDS ORDERED: hydrALAZINE 20 MG/ML VIAL SLOW IVP PRN (22:12)
[2021-08-05] MEDS ORDERED: Benzonatate 100 MG CAP PO PRN (22:12)
[2021-08-05] MEDS ORDERED: Potassium Chloride 20 MEQ TAB PO SCH (22:30)
[2021-08-05] MEDS ORDERED: hydrALAZINE 25 MG TAB PO SCH (22:30)
[2021-08-06 01:11] VITALS: BMI 36.6
[2021-08-06] MEDS: Levothyroxine Sodium 112 MCG TAB PO SCH (04:39)
[2021-08-06 06:35] LABS: Anion Gap 16 mmol/L (10-20); BUN (Urea Nitrogen) 11 mg/dL (9.8-20.1); Calc. Creatinine Clearance 75 mL/min (70-130); Calcium 9.1 mg/dL (7.8-10.44); Carbon Dioxide 26 mmol/L (23-31); Chloride 99 mmol/L (98-107); Glucose 114 mg/dL (83-110); Potassium 3.5 mmol/L (3.5-5.1); Sodium 137 mmol/L (136-145)
[2021-08-06] MEDS: Enoxaparin Sodium 40 MG/0.4 ML SYRINGE SC SCH (08:55)
[2021-08-06] MEDS: guaiFENesin ER 600 MG TAB PO SCH ×2 (08:55→20:49)
[2021-08-06] MEDS: Furosemide 40 MG/4 ML VIAL SLOW IVP SCH (08:55)
[2021-08-06] MEDS: hydrALAZINE 25 MG TAB PO SCH ×4 (08:55→20:50)
[2021-08-06] MEDS: FLUoxetine HCl 10 MG CAP PO SCH (08:55)
[2021-08-06] MEDS: Dexamethasone 4 MG TAB PO SCH (08:56)
[2021-08-06] MEDS: Trospium 20 MG TAB PO SCH (08:56)
[2021-08-06] MEDS: Carvedilol 25 MG TAB PO SCH ×2 (08:56→20:50)
[2021-08-06] MEDS ORDERED: Levothyroxine Sodium 112 MCG TAB PO SCH (09:00)
[2021-08-06 10:54] LABS: CRP (Inflammatory) 3.02 mg/dL (= or < 0.5)
[2021-08-06] MEDS ORDERED: Non-Formulary Item 1 EACH (Olmesartan Medoxomil [Olmesartan Medoxomil] 40 MG Tablet) PO SCH (21:00)
[2021-08-06] MEDS: Losartan 25 MG TAB PO SCH (22:24)
[2021-08-07] MEDS: Levothyroxine Sodium 112 MCG TAB PO SCH (05:46)
[2021-08-07 06:18] LABS: Anion Gap 16 mmol/L (10-20); BUN (Urea Nitrogen) 17 mg/dL (9.8-20.1); Calc. Creatinine Clearance 58 mL/min (70-130); Calcium 8.9 mg/dL (7.8-10.44); Carbon Dioxide 26 mmol/L (23-31); Chloride 99 mmol/L (98-107); Glucose 106 mg/dL (83-110); Sodium 138 mmol/L (136-145)
[2021-08-07 06:23] LABS: Potassium 2.9 mmol/L (3.5-5.1)
[2021-08-07] MEDS ORDERED: Potassium Bicarbonate/Cit Ac 20 MEQ TAB PO SCH (07:15)
[2021-08-07 07:50] LABS: Magnesium 1.8 mg/dL (1.6-2.6)
[2021-08-07] MEDS: hydrALAZINE 25 MG TAB PO SCH ×3 (08:46→20:13)
[2021-08-07] MEDS: guaiFENesin ER 600 MG TAB PO SCH ×2 (08:46→20:14)
[2021-08-07] MEDS: Trospium 20 MG TAB PO SCH (08:46)
[2021-08-07] MEDS: FLUoxetine HCl 10 MG CAP PO SCH (08:46)
[2021-08-07] MEDS: Dexamethasone 4 MG TAB PO SCH (08:47)
[2021-08-07] MEDS: Enoxaparin Sodium 40 MG/0.4 ML SYRINGE SC SCH (08:47)
[2021-08-07] MEDS: Carvedilol 25 MG TAB PO SCH ×3 (08:47→20:58)
[2021-08-07] MEDS: Furosemide 40 MG/4 ML VIAL SLOW IVP SCH (10:34)
[2021-08-07] MEDS ORDERED: Furosemide 20 MG TAB PO SCH (19:15)
[2021-08-07] MEDS: Losartan 25 MG TAB PO SCH (20:12)
[2021-08-08] MEDS: Levothyroxine Sodium 112 MCG TAB PO SCH (06:17)
[2021-08-08 07:59] LABS: Anion Gap 11 mmol/L (10-20); BUN (Urea Nitrogen) 16 mg/dL (9.8-20.1); Calc. Creatinine Clearance 70 mL/min (70-130); Calcium 8.9 mg/dL (7.8-10.44); Carbon Dioxide 30 mmol/L (23-31); Chloride 101 mmol/L (98-107); Glucose 105 mg/dL (83-110); Potassium 3.2 mmol/L (3.5-5.1); Sodium 139 mmol/L (136-145)
[2021-08-08] MEDS: guaiFENesin ER 600 MG TAB PO SCH (08:31)
[2021-08-08] MEDS: hydrALAZINE 25 MG TAB PO SCH ×2 (08:31→15:20)
[2021-08-08] MEDS: Dexamethasone 4 MG TAB PO SCH (08:34)
[2021-08-08] MEDS: Trospium 20 MG TAB PO SCH (08:37)
[2021-08-08] MEDS: FLUoxetine HCl 10 MG CAP PO SCH (08:37)
[2021-08-08] MEDS: Carvedilol 25 MG TAB PO SCH (08:37)
[2021-08-08] MEDS: Enoxaparin Sodium 40 MG/0.4 ML SYRINGE SC SCH (08:38)
[2021-08-08] MEDS ORDERED: Potassium Chloride 20 MEQ TAB PO SCH (11:30)
[2021-08-08 15:23] VITALS: BP 171/77
[2021-08-08 15:28] VITALS: TEMP 97.6
== END 2021-08-08 15:37 | disposition home or self-care (01) | DRG 177 ==
LOC: INTOOBSV 21:47 → T4-B 21:47 → OBSVTOIN 08-07 18:22
PROVIDERS: ADMIT Family Medicine; ATTEND Family Medicine
DX: U07.1 COVID-19 (principal); J96.01 Acute respiratory failure with hypoxia; N17.9 Acute kidney failure, unspecified; J84.9 Interstitial pulmonary disease, unspecified; K21.9 Gastro-esophageal reflux disease without esophagitis; I10 Essential (primary) hypertension; E66.9 Obesity, unspecified; E03.9 Hypothyroidism, unspecified; F32.A Depression, unspecified; F41.9 Anxiety disorder, unspecified; G47.33 Obstructive sleep apnea (adult) (pediatric); Z96.652 Presence of left artificial knee joint; E87.70 Fluid overload, unspecified; E87.6 Hypokalemia; K44.9 Diaphragmatic hernia without obstruction or gangrene; R82.71 Bacteriuria; K58.9 Irritable bowel syndrome, unspecified; N39.41 Urge incontinence; Z68.36 Body mass index [BMI] 36.0-36.9, adult; Z88.6 Allergy status to analgesic agent; Z88.1 Allergy status to other antibiotic agents; Z88.5 Allergy status to narcotic agent; Z88.2 Allergy status to sulfonamides; Z79.899 Other long term (current) drug therapy; Z79.890 Hormone replacement therapy; Z90.49 Acquired absence of other specified parts of digestive tract; Z90.710 Acquired absence of both cervix and uterus; Z82.49 Family history of ischemic heart disease and other diseases of the circulatory system
CPT/HCPCS: 36415; 71045; 71275; 80048; 80053; 81003; 81015; 82550; 82728; 83690; 83735; 83880; 84484; 85025; 85379; 86140; 93005; J0696; J1100; J1650; J1940; J8540; U0002

== ENCOUNTER 2021-08-27 14:42 | Outpatient (CLI) | payer MEDICARE, BC ==
[2021-08-27 23:50] LABS: SARS-CoV-2 PCR by NAA Not Detected (NotDetected)
== END 2021-08-27 14:43 | disposition home or self-care (01) ==
LOC: LABBT 14:42
PROVIDERS: ATTEND Internal Medicine
DX: Z01.812 Encounter for preprocedural laboratory examination (principal); K44.9 Diaphragmatic hernia without obstruction or gangrene; K21.9 Gastro-esophageal reflux disease without esophagitis; R13.19 Other dysphagia; Z20.822 Contact with and (suspected) exposure to COVID-19
CPT/HCPCS: U0003; U0005

== ENCOUNTER 2021-09-01 07:36 | Day surgery (SDC) | payer MEDICARE, BC ==
[2021-08-30 11:08] VITALS: BMI 36.3
[2021-09-01] MEDS ORDERED: Lidocaine 1% MPF 2 ML VIAL ONE (08:13)
[2021-09-01] MEDS ORDERED: PROPOFOL 200 MG/20 ML VIAL ONE (10:02)
[2021-09-01] MEDS ORDERED: Lidocaine 1% PF 5 ML VIAL ONE (10:02)
[2021-09-01] MEDS ORDERED: Fentanyl 100 MCG/2 ML VIAL ONE (10:47)
== END 2021-09-01 12:05 | disposition home or self-care (01) ==
LOC: SDC 07:36
PROVIDERS: ATTEND Internal Medicine
PROC: 0D748ZZ Dilation of Esophagogastric Junction, Via Natural or Artificial Opening Endoscopic (ICD-10-PCS; principal; 2021-09-01)
DX: K22.2 Esophageal obstruction (principal); K44.9 Diaphragmatic hernia without obstruction or gangrene; K21.9 Gastro-esophageal reflux disease without esophagitis; Z79.899 Other long term (current) drug therapy; Z88.1 Allergy status to other antibiotic agents; Z88.2 Allergy status to sulfonamides; Z88.5 Allergy status to narcotic agent
CPT/HCPCS: J2704; J3010

== ENCOUNTER 2021-12-14 10:07 | Outpatient (CLI) | payer MEDICARE, BC ==
[2021-12-14 11:37] LABS: #Basophils 0.1 10x3/uL (0.0-0.2); #Eosinphils 0.1 10x3/uL (0.0-0.5); #Monocytes 0.5 10x3/uL (0.0-1.1); #Neutrophils 4.8 10x3/uL (1.5-8.4); %Basophils 0.8 % (0.0-2.0); %Eosinophils 1.7 % (0.0-6.0); %Lymphocytes 13.9 % (18.0-47.0); %Monocytes 8.4 % (0.0-10.0); %Neutrophils 74.6 % (40.0-75.0); Hemoglobin 12.4 g/dL (12.0-15.5); Mean Corpuscular HGB CONC 33.1 g/dL (32.0-36.0); Mean Corpuscular Hemoglobin 32.3 pg (27.0-33.0); Mean Corpuscular Volume 97.7 fl (81.6-98.3); Mean Platelet Volume 9.8 fl (7.4-10.4); Platelet Count 294 10x3/uL (150-450); RBC Distribution Width 15.8 % (11.5-14.5); Red Blood Cell (RBC) Count 3.84 10x6/uL (3.90-5.03); White Blood Cell (WBC) Count 6.4 10x3/uL (3.5-10.5)
[2021-12-14 11:57] LABS: ALT (SGPT) 19 U/L (8-55); AST (SGOT) 29 U/L (5-34); Albumin 4.1 g/dL (3.4-4.8); Alkaline Phosphatase 87 U/L (40-110); Anion Gap 16 mmol/L (10-20); BUN (Urea Nitrogen) 9 mg/dL (9.8-20.1); Bilirubin, Total 1.1 mg/dL (0.2-1.2); Calc. Creatinine Clearance 0 mL/min (70-130); Carbon Dioxide 28 mmol/L (23-31); Chloride 99 mmol/L (98-107); Globulin 2.4 g/dL (2.4-3.5); Glucose 99 mg/dL (83-110); Potassium 3.1 mmol/L (3.5-5.1); Protein, Total 6.5 g/dL (5.8-8.1); Sodium 140 mmol/L (136-145)
[2021-12-15 00:48] LABS: SARS-CoV-2 PCR by NAA Not Detected (NotDetected)
== END 2021-12-14 10:08 | disposition home or self-care (01) ==
LOC: LABBT 10:07
PROVIDERS: ATTEND Internal Medicine Cardiovascular Disease
DX: Z01.818 Encounter for other preprocedural examination (principal); Z20.822 Contact with and (suspected) exposure to COVID-19
CPT/HCPCS: 80053; 85025; 93005; U0003; U0005; 93010

== ENCOUNTER 2021-12-17 10:37 | Day surgery (SDC) | payer MEDICARE, BC ==
[2021-12-15 11:05] VITALS: BMI 35.9
[2021-12-17] MEDS ORDERED: Midazolam HCl 2 mg/2 ml Vial ONE (12:06)
[2021-12-17] MEDS ORDERED: Fentanyl 100 MCG/2 ML VIAL ONE (12:06)
[2021-12-17 13:50] LABS: Actual Bicarbonate (HCO3a) 28.8 mEq/L (22-28); Analyzer IN Cardio OR; Base Excess (BEa) 4.1 mEq/L (-2.0 to +3.0); CO2 Tension 43.5 mmHg (35.0-45.0); Calcium, Ionized (arterial) 1.03 mmol/L (1.12-1.30); Carboxyhemoglobin (COHb) 0.6 gm% (0.0-3.0); Hemoglobin (Hb) 12.8 g/dL (12.0-16.0); Potassium - ABG Lab 2.64 mmol/L (3.70-5.30)
[2021-12-17 13:50] LABS: Actual Bicarbonate (HCO3a) 27.7 mEq/L (22-28); Analyzer IN Cardio OR; CO2 Tension 42.7 mmHg (35.0-45.0); Calcium, Ionized (arterial) 1.06 mmol/L (1.12-1.30); Carboxyhemoglobin (COHb) 0.5 gm% (0.0-3.0); Hemoglobin (Hb) 13.1 g/dL (12.0-16.0); Potassium - ABG Lab 2.86 mmol/L (3.70-5.30); pH, Arterial 7.43 (7.35-7.45)
[2021-12-17 13:51] LABS: O2 Tension (PaO2), arterial 42.2 mmHg (> 70.0)
[2021-12-17 13:52] LABS: O2 Tension (PaO2), arterial 43.6 mmHg (> 70.0); pH, Arterial 7.44 (7.35-7.45)
== END 2021-12-17 15:30 | disposition home or self-care (01) ==
LOC: SDC 10:37
PROVIDERS: ATTEND Internal Medicine Cardiovascular Disease
PROC: 4A023N6 Measurement of Cardiac Sampling and Pressure, Right Heart, Percutaneous Approach (ICD-10-PCS; principal; 2021-12-17)
DX: I27.20 Pulmonary hypertension, unspecified (principal); Q21.1 Atrial septal defect; Z79.890 Hormone replacement therapy; Z79.899 Other long term (current) drug therapy; Z88.1 Allergy status to other antibiotic agents; Z88.2 Allergy status to sulfonamides; Z88.5 Allergy status to narcotic agent
CPT/HCPCS: 82805; 93451; 99152; 99153; J2250; J3010

== ENCOUNTER 2021-12-30 13:15 | Outpatient (CLI) | payer MEDICARE, BC | END 2021-12-30 13:16 | disposition home or self-care (01) | LOC: RAD 13:15 | PROVIDERS: ATTEND Internal Medicine Critical Care Medicine | DX: R06.00 Dyspnea, unspecified (principal) | CPT/HCPCS: 71046 ==

== ENCOUNTER 2022-07-14 14:34 | Outpatient (CLI) | payer MEDICARE, BC | END 2022-07-14 14:35 | disposition home or self-care (01) | LOC: RAD 14:34 | PROVIDERS: ATTEND Internal Medicine Critical Care Medicine | DX: I27.20 Pulmonary hypertension, unspecified (principal); J90 Pleural effusion, not elsewhere classified | CPT/HCPCS: 71046 ==

== ENCOUNTER → 2022-07-15 | Day surgery (SDC) | payer MEDICARE, BC ==
[2022-07-14 15:27] VITALS: BMI 36.3
[~2022-07-15] MED LIST changes: -Acetaminophen 325 MG TAB PO PRN; +Lidocaine 1% MPF 2 ML VIAL ONE; -Ondansetron ODT 4 MG TAB SL PRN; -Ondansetron PF 4 MG/2 ML Vial IVP PRN
[2022-07-15 09:11] LABS: Fluid, Triglycerides 20 mg/dL (Not Available); Pleural Fluid, Amylase Less than 30 U/L (Not Available); Pleural Fluid, Glucose 80 mg/dL; Pleural Fluid, LDH 258 U/L (Not Available); Pleural Fluid, Protein 3.7 g/dL
[2022-07-15 10:05] LABS: RBC Count-Automated (BF) 561 /cu.mm; WBC/Nucleated-Auto (BF) 1770 /cu.mm
[2022-07-15 10:08] LABS: BF Color Yellow; Body Fluid Source Thoracentesis Fluid; Clarity Hazy (Clear); Tube # EDTA
[2022-07-15 10:42] LABS: BF Segmented Neutrophils 26 %; Cell Count Non Hematic 35 %; Eosinophils 2 %; Lymphocytes 37 %
== END | disposition home or self-care (01) ==
LOC: SDC 06:44
PROVIDERS: ATTEND Internal Medicine Critical Care Medicine
PROC: 0W9B3ZZ Drainage of Left Pleural Cavity, Percutaneous Approach (ICD-10-PCS; principal; 2022-07-15)
DX: J90 Pleural effusion, not elsewhere classified (principal); I27.20 Pulmonary hypertension, unspecified; G47.33 Obstructive sleep apnea (adult) (pediatric); I10 Essential (primary) hypertension; K21.9 Gastro-esophageal reflux disease without esophagitis; E66.9 Obesity, unspecified; Z68.36 Body mass index [BMI] 36.0-36.9, adult; Z79.82 Long term (current) use of aspirin; Z79.890 Hormone replacement therapy; Z79.899 Other long term (current) drug therapy; Z88.1 Allergy status to other antibiotic agents; Z88.2 Allergy status to sulfonamides; Z88.5 Allergy status to narcotic agent; Z99.81 Dependence on supplemental oxygen
CPT/HCPCS: 32555; 82150; 82945; 83615; 83986; 84157; 84478; 85060; 87070; 87116; 87205; 87206; 88112; 88305; 88341; 88342; 89051

== ENCOUNTER 2022-08-04 13:54 | Outpatient (CLI) | payer MEDICARE, BC | END 2022-08-04 13:55 | disposition home or self-care (01) | LOC: RAD 13:54 | PROVIDERS: ATTEND Internal Medicine Critical Care Medicine | DX: R06.00 Dyspnea, unspecified (principal); J90 Pleural effusion, not elsewhere classified; J98.11 Atelectasis; R91.8 Other nonspecific abnormal finding of lung field | CPT/HCPCS: 71046 ==

== ENCOUNTER 2022-09-16 11:11 | Outpatient (CLI) | payer MEDICARE, BC | END 2022-09-16 11:12 | disposition home or self-care (01) | LOC: RAD 11:11 | PROVIDERS: ATTEND Internal Medicine Critical Care Medicine | DX: R06.00 Dyspnea, unspecified (principal); R91.8 Other nonspecific abnormal finding of lung field | CPT/HCPCS: 71046 ==

== ENCOUNTER 2022-10-01 14:27 | Emergency (ER) | payer MEDICARE, BC ==
[~2022-10-01 14:27] MED LIST changes: +Iopamidol-370 76% 500 ML 1 ML ONE; -Lidocaine 1% MPF 2 ML VIAL ONE
[2022-10-01 15:35] LABS: #Eosinphils 0.1 thou/uL (0.0-0.7); #Lymphocytes 0.7 thou/uL (1.20-3.40); #Monocytes 0.4 thou/uL (0.11-0.59); #Neutrophils 5.3 thou/uL (1.40-6.50); %Basophils 0.5 % (0.0-1.0); %Eosinophils 1.2 % (0.0-10.0); %Lymphocytes 10.7 % (21.0-51.0); %Monocytes 6.3 % (0.0-10.0); %Neutrophils 81.2 % (42.0-75.0); Hemoglobin 12.1 g/dL (12.0-16.0); Mean Corpuscular HGB CONC 35.4 g/dL (32.0-36.0); Mean Corpuscular Hemoglobin 37.1 pg (27.0-31.0); Mean Platelet Volume 7.4 fL (7.4-10.4); Platelet Count 214 10x3/uL (130-400); RBC Distribution Width 12.7 % (11.5-14.5); Red Blood Cell (RBC) Count 3.27 mill/uL (4.20-5.40); White Blood Cell (WBC) Count 6.5 10x3/uL (4.8-10.8)
[2022-10-01 15:36] LABS: ALT (SGPT) 8 U/L (8-55); AST (SGOT) 22 U/L (5-34); Albumin 4.2 g/dL (3.4-4.8); Alkaline Phosphatase 57 U/L (40-110); Anion Gap 19 mmol/L (10-20); BUN (Urea Nitrogen) 25 mg/dL (9.8-20.1); Bilirubin, Total 0.5 mg/dL (0.2-1.2); Calc. Creatinine Clearance 0 mL/min (70-130); Calcium 9.2 mg/dL (7.8-10.44); Carbon Dioxide 24 mmol/L (23-31); Chloride 102 mmol/L (98-107); Estimated GFR 41; Globulin 3.2 g/dL (2.4-3.5); Glucose 95 mg/dL (83-110); Potassium 4.1 mmol/L (3.5-5.1); Protein, Total 7.4 g/dL (5.8-8.1); Sodium 141 mmol/L (136-145)
[2022-10-01] MEDS ORDERED: Aspirin Chewable 81 MG TAB ONE (15:54)
[2022-10-01] MEDS ORDERED: Furosemide 20 MG/2 ML VIAL ONE (15:54)
== END 2022-10-01 19:11 | disposition home or self-care (01) ==
LOC: ERS 14:27
DX: R60.9 Edema, unspecified (principal); R06.00 Dyspnea, unspecified; I10 Essential (primary) hypertension; K21.9 Gastro-esophageal reflux disease without esophagitis; E66.9 Obesity, unspecified
CPT/HCPCS: 36415; 71045; 71275; 74177; 80053; 83880; 84484; 85025; 93005; J1940; Q9967

== ENCOUNTER 2022-10-17 14:16 | Inpatient (IN) | payer MEDICARE, BC ==
[2022-10-17 15:09] LABS: #Lymphocytes 0.6 thou/uL (1.20-3.40); #Monocytes 0.6 thou/uL (0.11-0.59); #Neutrophils 5.8 thou/uL (1.40-6.50); %Basophils 0.3 % (0.0-1.0); %Eosinophils 0.6 % (0.0-10.0); %Monocytes 8.6 % (0.0-10.0); %Neutrophils 82.5 % (42.0-75.0); Hemoglobin 11.3 g/dL (12.0-16.0); Mean Corpuscular HGB CONC 32.9 g/dL (32.0-36.0); Mean Corpuscular Hemoglobin 34.3 pg (27.0-31.0); Mean Platelet Volume 7.2 fL (7.4-10.4); Platelet Count 250 10x3/uL (130-400); RBC Distribution Width 12.3 % (11.5-14.5); Red Blood Cell (RBC) Count 3.31 mill/uL (4.20-5.40)
[2022-10-17 15:24] LABS: ALT (SGPT) Less than 7 U/L (8-55); AST (SGOT) 17 U/L (5-34); Albumin 4.3 g/dL (3.4-4.8); Alkaline Phosphatase 44 U/L (40-110); Anion Gap 19 mmol/L (10-20); BUN (Urea Nitrogen) 44 mg/dL (9.8-20.1); Bilirubin, Total 0.3 mg/dL (0.2-1.2); CK (CPK) 77 U/L (29-168); Calc. Creatinine Clearance 0 mL/min (70-130); Calcium 8.7 mg/dL (7.8-10.44); Carbon Dioxide 21 mmol/L (23-31); Chloride 90 mmol/L (98-107); Estimated GFR 14; Globulin 2.6 g/dL (2.4-3.5); Glucose 100 mg/dL (83-110); Lipase 69 U/L (8-78); Potassium 3.8 mmol/L (3.5-5.1); Protein, Total 6.9 g/dL (5.8-8.1); Sodium 126 mmol/L (136-145)
[2022-10-17] MEDS ORDERED: Ondansetron PF 4 MG/2 ML Vial ONE (15:45)
[2022-10-17 15:50] LABS: Clarity Hazy (Clear)
[2022-10-17 15:51] LABS: Bilirubin Unable to Interpret (Negative); Blood, Urine Unable to Interpret (Negative); Glucose, Urine (Dipstick) Unable to Interpret mg/dL (Negative); Ketone, Urine Unable to Interpret mg/dL (Negative); Leukocyte Unable to Interpret Leu/uL (Negative); Nitrite Unable to Interpret (Negative); Protein, Urine (Dipstick) Unable to Interpret mg/dL (Neg-Trace); Specific Gravity, Urine 1.013 (1.002-1.036); Urobilinogen UNABLE TO INTERPRET mg/dL (Less than 2); pH, Urine 5.1 (5.0-9.0)
[2022-10-17 15:55] LABS: Bacteria/HPF 1+ HPF (None Seen); RBC/HPF 0-3 HPF (0-3); Squamous Epithelial 0-3 HPF (0-3)
[2022-10-17 16:10] LABS: SARS-CoV-2 NAA Rapid Test Not Detected (NotDetected)
[2022-10-17] MEDS ORDERED: Sodium Chloride 0.9% 1,000 ML IV SCH (18:45)
[2022-10-17] MEDS: Acetaminophen 325 MG TAB PO PRN (20:15)
[2022-10-17] MEDS ORDERED: Fentanyl 100 MCG/2 ML VIAL SLOW IVP PRN (21:06)
[2022-10-17] MEDS: cefTRIAXone\\ROCEPHIN 1 GM in Sodium Chloride 0.9% 100 ML IVPB SCH (21:15)
[2022-10-17] MEDS: FENTANYL 50 MCG/ML 1 ML VIAL SLOW IVP PRN (21:27)
[2022-10-17 22:29] VITALS: BMI 36.1
[2022-10-18] MEDS: FENTANYL 50 MCG/ML 1 ML VIAL SLOW IVP PRN ×2 (01:30→05:29)
[2022-10-18] MEDS: Levothyroxine Sodium 112 MCG TAB PO SCH (05:28)
[2022-10-18] MEDS: Docusate 100 MG CAP PO PRN (05:28)
[2022-10-18] MEDS ORDERED: Carvedilol 25 MG TAB PO SCH (08:00)
[2022-10-18] MEDS: Aspirin Chewable 81 MG TAB PO SCH (09:41)
[2022-10-18] MEDS: hydrALAZINE 25 MG TAB PO SCH ×2 (09:46→17:19)
[2022-10-18 11:38] LABS: #Eosinphils 0.1 thou/uL (0.0-0.7); #Lymphocytes 0.6 thou/uL (1.20-3.40); #Monocytes 0.8 thou/uL (0.11-0.59); #Neutrophils 7.2 thou/uL (1.40-6.50); %Eosinophils 1.6 % (0.0-10.0); %Lymphocytes 6.7 % (21.0-51.0); %Monocytes 9.3 % (0.0-10.0); %Neutrophils 82.4 % (42.0-75.0); Hemoglobin 10.5 g/dL (12.0-16.0); Mean Corpuscular HGB CONC 33.4 g/dL (32.0-36.0); Mean Corpuscular Hemoglobin 34.8 pg (27.0-31.0); Mean Platelet Volume 7.6 fL (7.4-10.4); Platelet Count 222 10x3/uL (130-400); RBC Distribution Width 12.3 % (11.5-14.5); Red Blood Cell (RBC) Count 3.02 mill/uL (4.20-5.40); White Blood Cell (WBC) Count 8.8 10x3/uL (4.8-10.8)
[2022-10-18] MEDS: TADALAFIL 20 MG PO SCH (11:55)
[2022-10-18] MEDS: MACITENTAN 10 MG PO SCH (11:55)
[2022-10-18 11:56] LABS: Anion Gap 16 mmol/L (10-20); BUN (Urea Nitrogen) 43 mg/dL (9.8-20.1); Calc. Creatinine Clearance 23 mL/min (70-130); Calcium 8.4 mg/dL (7.8-10.44); Carbon Dioxide 19 mmol/L (23-31); Chloride 99 mmol/L (98-107); Estimated GFR 17; Glucose 93 mg/dL (83-110); Potassium 3.4 mmol/L (3.5-5.1); Sodium 131 mmol/L (136-145)
[2022-10-18] MEDS ORDERED: Potassium Chloride 20 MEQ TAB PO SCH (16:45)
[2022-10-18] MEDS ORDERED: Potassium Chloride 20 MEQ TAB ONE (16:58)
[2022-10-18] MEDS: cefTRIAXone\\ROCEPHIN 1 GM in Sodium Chloride 0.9% 100 ML IVPB SCH (18:08)
[2022-10-18] MEDS: Albumin 25% 25 GM/100 ML BOT IVPB SCH ×2 (18:48→23:52)
[2022-10-19 04:15] LABS: Hemoglobin 9.1 g/dL (12.0-16.0); Mean Corpuscular HGB CONC 32.9 g/dL (32.0-36.0); Mean Corpuscular Hemoglobin 34.4 pg (27.0-31.0); Mean Platelet Volume 7.4 fL (7.4-10.4); Platelet Count 181 10x3/uL (130-400); RBC Distribution Width 12.3 % (11.5-14.5); Red Blood Cell (RBC) Count 2.65 mill/uL (4.20-5.40); White Blood Cell (WBC) Count 5.8 10x3/uL (4.8-10.8)
[2022-10-19 04:35] LABS: Anion Gap 13 mmol/L (10-20); BUN (Urea Nitrogen) 43 mg/dL (9.8-20.1); Calc. Creatinine Clearance 25 mL/min (70-130); Calcium 8.6 mg/dL (7.8-10.44); Carbon Dioxide 22 mmol/L (23-31); Chloride 103 mmol/L (98-107); Estimated GFR 20; Glucose 96 mg/dL (83-110); Potassium 3.4 mmol/L (3.5-5.1); Sodium 135 mmol/L (136-145)
[2022-10-19 05:24] LABS: Band 2 % (5-11); Lymphocytes 10 % (21-51); MDiff Complete? YES; Monocytes 14 % (0-10); Neutrophil 74 % (42-75)
[2022-10-19] MEDS: Levothyroxine Sodium 112 MCG TAB PO SCH (06:23)
[2022-10-19] MEDS: Albumin 25% 25 GM/100 ML BOT IVPB SCH ×3 (06:23→18:27)
[2022-10-19] MEDS: Aspirin Chewable 81 MG TAB PO SCH (09:05)
[2022-10-19] MEDS: TADALAFIL 20 MG PO SCH (09:06)
[2022-10-19] MEDS: MACITENTAN 10 MG PO SCH (09:06)
[2022-10-19] MEDS: Docusate 100 MG CAP PO PRN (09:12)
[2022-10-20] MEDS: Albumin 25% 25 GM/100 ML BOT IVPB SCH ×4 (00:03→18:39)
[2022-10-20 05:00] LABS: #Eosinphils 0.1 thou/uL (0.0-0.7); #Lymphocytes 0.8 thou/uL (1.20-3.40); #Monocytes 0.6 thou/uL (0.11-0.59); #Neutrophils 4.2 thou/uL (1.40-6.50); %Basophils 0.5 % (0.0-1.0); %Eosinophils 1.9 % (0.0-10.0); %Lymphocytes 13.2 % (21.0-51.0); %Neutrophils 73.4 % (42.0-75.0); Hemoglobin 8.8 g/dL (12.0-16.0); Mean Corpuscular HGB CONC 34.3 g/dL (32.0-36.0); Mean Corpuscular Hemoglobin 35.7 pg (27.0-31.0); Mean Platelet Volume 7.7 fL (7.4-10.4); Platelet Count 182 10x3/uL (130-400); RBC Distribution Width 12.1 % (11.5-14.5); Red Blood Cell (RBC) Count 2.45 mill/uL (4.20-5.40); White Blood Cell (WBC) Count 5.8 10x3/uL (4.8-10.8)
[2022-10-20 05:19] LABS: Anion Gap 14 mmol/L (10-20); BUN (Urea Nitrogen) 36 mg/dL (9.8-20.1); Calc. Creatinine Clearance 38 mL/min (70-130); Calcium 9.3 mg/dL (7.8-10.44); Carbon Dioxide 22 mmol/L (23-31); Chloride 104 mmol/L (98-107); Estimated GFR 32; Glucose 100 mg/dL (83-110); Potassium 3.4 mmol/L (3.5-5.1); Sodium 137 mmol/L (136-145)
[2022-10-20] MEDS: Levothyroxine Sodium 112 MCG TAB PO SCH (05:44)
[2022-10-20] MEDS ORDERED: Furosemide 100 MG/10 ML VIAL SLOW IVP SCH (08:30)
[2022-10-20] MEDS ORDERED: Senokot 8.6 MG TAB PO PRN (08:38)
[2022-10-20] MEDS ORDERED: Potassium Chloride 20 MEQ TAB PO SCH ×2 (09:00→18:00)
[2022-10-20] MEDS: Aspirin Chewable 81 MG TAB PO SCH (10:27)
[2022-10-20] MEDS: MACITENTAN 10 MG PO SCH (10:29)
[2022-10-20] MEDS: TADALAFIL 20 MG PO SCH (10:29)
[2022-10-21] MEDS: Albumin 25% 25 GM/100 ML BOT IVPB SCH ×4 (00:24→18:45)
[2022-10-21 05:10] LABS: #Eosinphils 0.2 thou/uL (0.0-0.7); #Lymphocytes 0.7 thou/uL (1.20-3.40); #Monocytes 0.6 thou/uL (0.11-0.59); #Neutrophils 4.2 thou/uL (1.40-6.50); %Basophils 0.1 % (0.0-1.0); %Eosinophils 2.8 % (0.0-10.0); %Lymphocytes 11.8 % (21.0-51.0); %Monocytes 11.3 % (0.0-10.0); %Neutrophils 74.1 % (42.0-75.0); Hemoglobin 9.4 g/dL (12.0-16.0); Mean Corpuscular HGB CONC 34.2 g/dL (32.0-36.0); Mean Corpuscular Hemoglobin 35.8 pg (27.0-31.0); Mean Platelet Volume 7.7 fL (7.4-10.4); Platelet Count 177 10x3/uL (130-400); RBC Distribution Width 12.2 % (11.5-14.5); Red Blood Cell (RBC) Count 2.62 mill/uL (4.20-5.40); White Blood Cell (WBC) Count 5.6 10x3/uL (4.8-10.8)
[2022-10-21 05:32] LABS: Anion Gap 14 mmol/L (10-20); BUN (Urea Nitrogen) 34 mg/dL (9.8-20.1); Calc. Creatinine Clearance 39 mL/min (70-130); Calcium 9.7 mg/dL (7.8-10.44); Carbon Dioxide 25 mmol/L (23-31); Chloride 106 mmol/L (98-107); Estimated GFR 33; Glucose 93 mg/dL (83-110); Potassium 4.1 mmol/L (3.5-5.1); Sodium 141 mmol/L (136-145)
[2022-10-21] MEDS: Levothyroxine Sodium 112 MCG TAB PO SCH (05:35)
[2022-10-21] MEDS ORDERED: Furosemide 100 MG/10 ML VIAL SLOW IVP SCH (09:15)
[2022-10-21] MEDS: Aspirin Chewable 81 MG TAB PO SCH (10:11)
[2022-10-21] MEDS: TADALAFIL 20 MG PO SCH (10:13)
[2022-10-21] MEDS: MACITENTAN 10 MG PO SCH (10:13)
[2022-10-22] MEDS: Albumin 25% 25 GM/100 ML BOT IVPB SCH ×3 (00:06→11:18)
[2022-10-22 05:02] LABS: Anion Gap 14 mmol/L (10-20); BUN (Urea Nitrogen) 39 mg/dL (9.8-20.1); Calc. Creatinine Clearance 37 mL/min (70-130); Calcium 9.9 mg/dL (7.8-10.44); Carbon Dioxide 26 mmol/L (23-31); Chloride 104 mmol/L (98-107); Estimated GFR 31; Glucose 95 mg/dL (83-110); Potassium 3.8 mmol/L (3.5-5.1); Sodium 140 mmol/L (136-145)
[2022-10-22] MEDS: Levothyroxine Sodium 112 MCG TAB PO SCH (05:44)
[2022-10-22] MEDS: Acetaminophen 325 MG TAB PO PRN (05:49)
[2022-10-22] MEDS: Aspirin Chewable 81 MG TAB PO SCH (10:24)
[2022-10-22] MEDS: MACITENTAN 10 MG PO SCH (10:25)
[2022-10-22] MEDS: TADALAFIL 20 MG PO SCH (10:25)
[2022-10-22 11:07] VITALS: BP 138/63; TEMP 97.8
== END 2022-10-22 14:15 | disposition home or self-care (01) | DRG 682 ==
LOC: ERS 14:16 → 2NO 17:57
PROVIDERS: ADMIT Hospitalist; ATTEND Internal Medicine
DX: N17.9 Acute kidney failure, unspecified (principal); I50.33 Acute on chronic diastolic (congestive) heart failure; E87.1 Hypo-osmolality and hyponatremia; N39.0 Urinary tract infection, site not specified; I13.0 Hypertensive heart and chronic kidney disease with heart failure and stage 1 through stage 4 chronic kidney disease, or unspecified chronic kidney disease; I27.20 Pulmonary hypertension, unspecified; K58.9 Irritable bowel syndrome, unspecified; E66.9 Obesity, unspecified; E03.9 Hypothyroidism, unspecified; D63.1 Anemia in chronic kidney disease; N18.30 Chronic kidney disease, stage 3 unspecified; E87.6 Hypokalemia; G47.33 Obstructive sleep apnea (adult) (pediatric); Z88.1 Allergy status to other antibiotic agents; Z88.5 Allergy status to narcotic agent; Z88.2 Allergy status to sulfonamides; Z79.899 Other long term (current) drug therapy; Z68.36 Body mass index [BMI] 36.0-36.9, adult; Z79.890 Hormone replacement therapy; R35.0 Frequency of micturition
CPT/HCPCS: 36415; 71045; 74176; 76770; 80048; 80053; 81003; 81015; 82274; 82550; 82728; 83605; 83690; 84484; 85025; 87040; 87086; 93005; J0696; J1940; J2405; J3010; J3490; J7050; P9047; U0002